=== PATIENT | male | born 1990 | race African-American/Black ===

== ENCOUNTER 2018-05-26 13:54 | Emergency (ER) | payer SELFPAY ==
[2018-05-26 14:00] VITALS: BP 128/68
[2018-05-26] MEDS ORDERED: LORATADINE 10 MG TABLET PO ONE (15:14)
[2018-05-26] MEDS ORDERED: PSEUDOEPHEDRINE HCL 30 MG TABLET PO ONE (15:15)
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
== END 2018-05-26 15:52 | disposition home or self-care (01) ==
LOC: ER 13:54
DX: J06.9 Acute upper respiratory infection, unspecified (principal); R51 Headache; J02.9 Acute pharyngitis, unspecified; R19.7 Diarrhea, unspecified; R09.81 Nasal congestion; J34.89 Other specified disorders of nose and nasal sinuses; R53.83 Other fatigue; R09.82 Postnasal drip; F17.210 Nicotine dependence, cigarettes, uncomplicated; Z71.6 Tobacco abuse counseling; Z77.120 Contact with and (suspected) exposure to mold (toxic)
CPT/HCPCS: 99283

== ENCOUNTER 2020-05-30 21:33 | Emergency (ER) | payer SELFPAY | END 2020-05-30 23:00 | disposition left against medical advice (07) | LOC: ER 21:33 | DX: Z53.21 Procedure and treatment not carried out due to patient leaving prior to being seen by health care provider (principal) ==